=== PATIENT | female | born 1970 | race Caucasian/White ===

== ENCOUNTER 2019-04-11 15:13 | Inpatient (IN) | payer OTHER ==
[2019-04-11 20:19] LABS: ADD MAN DIFF? NO
[2019-04-11] MEDS: KETOROLAC 15 MG INJ IV (20:23)
[2019-04-11 20:24] LABS: WHITE BLOOD COUNT 16.1 10^3/ul (4.8-10.8)
[2019-04-11 20:24] LABS: BASOPHIL # 0.1 10^3/ul (0.0-0.1); BASOPHILS % 0.5 % (0.0-2.0); EOSINOPHILS # 0.1 10^3/ul (0.0-0.5); EOSINOPHILS % 0.9 % (0.0-7.0); HEMATOCRIT 44.4 % (37.0-47.0); HEMOGLOBIN 14.2 g/dl (12.0-16.0); LYMPHOCYTES # 2.4 10^3/ul (0.8-2.9); LYMPHOCYTES % 14.9 % (15.0-51.0); MEAN CORPUSCULAR HEMOGLOBIN 28.2 pg (29.0-33.0); MEAN CORPUSCULAR VOLUME 88.3 fl (82.0-101.0); MEAN PLATELET VOLUME 10.8 fl (7.4-10.4); MONOCYTE # 0.9 10^3/ul (0.3-0.9); MONOCYTES % 5.8 % (0.0-11.0); NEUTROPHIL # 12.5 10^3/ul (1.6-7.5); NEUTROPHILS % 77.4 % (39.0-77.0); PLATELET COUNT 270 10^3/UL (140-415); RED BLOOD COUNT 5.03 10^6/ul (4.20-5.40); RED CELL DISTRIBUTION WIDTH 13.7 % (11.5-14.5)
[2019-04-11 20:32] LABS: ANION GAP 13 (5-13); BLOOD UREA NITROGEN 10 mg/dl (7-20); CALCIUM 9.3 mg/dl (8.4-10.2); CARBON DIOXIDE 32 mmol/L (21-31); CHLORIDE 100 mmol/L (97-110); CREATININE 0.76 mg/dl (0.44-1.00); Estimated GFR > 60 mL/min (>60); GLUCOSE 152 mg/dl (70-220); POTASSIUM 3.7 mmol/L (3.5-5.1); SODIUM 145 mmol/L (135-144)
[2019-04-11 20:48] LABS: C-REACTIVE PROTEIN 20.1 mg/dl (0.0-0.9)
[2019-04-11] MEDS: CEFTRIAXONE 1 GM/50 ML (PMX) 50 ML IVPB (21:27)
[2019-04-11] MEDS ORDERED: HYDROCODONE/APAP (5/325) TAB PO (22:00)
[2019-04-11] MEDS ORDERED: DOCUSATE SODIUM 100 MG CAP PO (22:00)
[2019-04-11] MEDS ORDERED: BISACODYL (EC) 5 MG TAB PO (22:00)
[2019-04-11] MEDS ORDERED: ONDANSETRON 4 MG INJ IV (22:00)
[2019-04-11] MEDS ORDERED: VANCOMYCIN IV PER PHARMACY XX (22:00)
[2019-04-11] MEDS: VANCOMYCIN HCL 2 GM in SOD CHLORIDE 0.9% 500 ML IVPB (22:40)
[2019-04-11] MEDS: IOHEXOL 300MG/ML 150 ML BTL (23:05)
[2019-04-11] MEDS: SOD CHLORIDE 0.9% 100 ML (23:05)
[2019-04-12] MEDS: ACETAMINOPHEN 325 MG TAB PO ×2 (03:02→14:48)
[2019-04-12 04:05] LABS: ADD MAN DIFF? NO
[2019-04-12 04:16] LABS: BASOPHIL # 0.1 10^3/ul (0.0-0.1); BASOPHILS % 0.4 % (0.0-2.0); EOSINOPHILS % 0.2 % (0.0-7.0); HEMATOCRIT 36.8 % (37.0-47.0); LYMPHOCYTES # 1.6 10^3/ul (0.8-2.9); MEAN CORPUSCULAR HGB CONC 32.6 g/dl (32.0-37.0); MEAN CORPUSCULAR VOLUME 85.8 fl (82.0-101.0); MEAN PLATELET VOLUME 10.4 fl (7.4-10.4); MONOCYTE # 0.8 10^3/ul (0.3-0.9); MONOCYTES % 6.2 % (0.0-11.0); PLATELET COUNT 236 10^3/UL (140-415); RED BLOOD COUNT 4.29 10^6/ul (4.20-5.40); RED CELL DISTRIBUTION WIDTH 13.6 % (11.5-14.5)
[2019-04-12 04:16] LABS: WHITE BLOOD COUNT 12.5 10^3/ul (4.8-10.8)
[2019-04-12 04:27] LABS: HEMOGLOBIN A1C 6.1 % (0-5.9)
[2019-04-12 04:37] LABS: LACTIC ACID 1.1 mmol/L (0.5-2.0)
[2019-04-12 04:39] LABS: ALANINE AMINOTRANSFERASE 45 IU/L (13-69); ALBUMIN 3.7 g/dl (3.3-4.9); ALKALINE PHOSPHATASE 90 IU/L (42-121); ANION GAP 9 (5-13); ASPARTATE AMINO TRANSFERASE 40 IU/L (15-46); BILIRUBIN,INDIRECT 0.5 mg/dl (0-1.1); BILIRUBIN,TOTAL 0.5 mg/dl (0.2-1.3); BLOOD UREA NITROGEN 11 mg/dl (7-20); CALCIUM 8.4 mg/dl (8.4-10.2); CARBON DIOXIDE 27 mmol/L (21-31); CHLORIDE 102 mmol/L (97-110); CHOL/HDL RATIO 4.9 RATIO; CHOLESTEROL 123 mg/dl (100-200); CREATININE 0.69 mg/dl (0.44-1.00); Estimated GFR > 60 mL/min (>60); GLUCOSE 140 mg/dl (70-220); HDL CHOLESTEROL 25 mg/dl (37-92); LDL CHOLESTEROL,CALCULATED 79 mg/dl; MAGNESIUM 2.1 mg/dl (1.7-2.5); POTASSIUM 3.2 mmol/L (3.5-5.1); SODIUM 138 mmol/L (135-144); TOTAL PROTEIN 7.4 g/dl (6.1-8.1); TRIGLYCERIDES 96 mg/dl (0-149)
[2019-04-12 05:21] LABS: C-REACTIVE PROTEIN 16.4 mg/dl (0.0-0.9)
[2019-04-12 06:17] LABS: INR 1.02; PROTIME 13.5 Sec (11.9-14.9); PT RATIO 1.1
[2019-04-12 06:18] LABS: PARTIAL THROMBOPLASTIN TIME 31.6 Sec (23.0-35.0)
[2019-04-12 06:22] LABS: ERYTHROCYTE SEDIMENTATION RATE 60 mm/Hr (0-30)
[2019-04-12] MEDS: VANCOMYCIN HCL 1.5 GM in SOD CHLORIDE 0.9% 250 ML IVPB ×2 (09:32→21:00)
[2019-04-12] MEDS: ENOXAPARIN 40 MG/0.4 ML SYG SC (09:33)
[2019-04-12] MEDS: POTASSIUM CHLORIDE (SR) 20 MEQ TAB PO (12:11)
[2019-04-13 09:18] LABS: ADD MAN DIFF? NO
[2019-04-13 09:20] LABS: BASOPHIL # 0.1 10^3/ul (0.0-0.1); BASOPHILS % 0.6 % (0.0-2.0); EOSINOPHILS # 0.1 10^3/ul (0.0-0.5); EOSINOPHILS % 0.6 % (0.0-7.0); HEMATOCRIT 36.8 % (37.0-47.0); HEMOGLOBIN 11.7 g/dl (12.0-16.0); LYMPHOCYTES # 2.2 10^3/ul (0.8-2.9); MEAN CORPUSCULAR HEMOGLOBIN 27.6 pg (29.0-33.0); MEAN CORPUSCULAR HGB CONC 31.8 g/dl (32.0-37.0); MEAN CORPUSCULAR VOLUME 86.8 fl (82.0-101.0); MEAN PLATELET VOLUME 10.6 fl (7.4-10.4); MONOCYTE # 1.2 10^3/ul (0.3-0.9); MONOCYTES % 9.1 % (0.0-11.0); NEUTROPHIL # 9.4 10^3/ul (1.6-7.5); NEUTROPHILS % 72.1 % (39.0-77.0); PLATELET COUNT 256 10^3/UL (140-415); RED BLOOD COUNT 4.24 10^6/ul (4.20-5.40); RED CELL DISTRIBUTION WIDTH 13.9 % (11.5-14.5)
[2019-04-13 09:45] LABS: ALANINE AMINOTRANSFERASE 49 IU/L (13-69); ALBUMIN 3.8 g/dl (3.3-4.9); ALKALINE PHOSPHATASE 107 IU/L (42-121); ANION GAP 8 (5-13); ASPARTATE AMINO TRANSFERASE 40 IU/L (15-46); BILIRUBIN,INDIRECT 0.6 mg/dl (0-1.1); BILIRUBIN,TOTAL 0.6 mg/dl (0.2-1.3); BLOOD UREA NITROGEN 7 mg/dl (7-20); CALCIUM 8.8 mg/dl (8.4-10.2); CARBON DIOXIDE 30 mmol/L (21-31); CHLORIDE 102 mmol/L (97-110); CREATININE 0.71 mg/dl (0.44-1.00); Estimated GFR > 60 mL/min (>60); GLUCOSE 124 mg/dl (70-220); POTASSIUM 3.4 mmol/L (3.5-5.1); SODIUM 140 mmol/L (135-144); TOTAL PROTEIN 7.6 g/dl (6.1-8.1)
[2019-04-13] MEDS: ENOXAPARIN 40 MG/0.4 ML SYG SC (09:55)
[2019-04-13] MEDS: VANCOMYCIN HCL 1.5 GM in SOD CHLORIDE 0.9% 250 ML IVPB (10:09)
[2019-04-13] MEDS: NACL 0.9% 3 ML SYG IV (10:14)
[2019-04-13] MEDS: POTASSIUM CHLORIDE (SR) 20 MEQ TAB PO (12:27)
[2019-04-13] MEDS: VANCOMYCIN HCL 1.25 GM in SOD CHLORIDE 0.9% 250 ML IVPB (17:10)
[2019-04-13] MEDS: DOXYCYCLINE 100 MG TAB PO (20:22)
[2019-04-14] MEDS: VANCOMYCIN HCL 1.25 GM in SOD CHLORIDE 0.9% 250 ML IVPB ×3 (01:06→18:20)
[2019-04-14 05:50] LABS: ADD MAN DIFF? NO
[2019-04-14 06:03] LABS: BASOPHIL # 0.1 10^3/ul (0.0-0.1); BASOPHILS % 0.6 % (0.0-2.0); EOSINOPHILS # 0.2 10^3/ul (0.0-0.5); EOSINOPHILS % 1.6 % (0.0-7.0); HEMATOCRIT 35.6 % (37.0-47.0); HEMOGLOBIN 11.3 g/dl (12.0-16.0); LYMPHOCYTES # 2.9 10^3/ul (0.8-2.9); LYMPHOCYTES % 19.8 % (15.0-51.0); MEAN CORPUSCULAR HGB CONC 31.7 g/dl (32.0-37.0); MEAN CORPUSCULAR VOLUME 88.1 fl (82.0-101.0); MEAN PLATELET VOLUME 10.5 fl (7.4-10.4); MONOCYTE # 1.1 10^3/ul (0.3-0.9); MONOCYTES % 7.3 % (0.0-11.0); NEUTROPHIL # 10.2 10^3/ul (1.6-7.5); NEUTROPHILS % 70.1 % (39.0-77.0); PLATELET COUNT 263 10^3/UL (140-415); RED BLOOD COUNT 4.04 10^6/ul (4.20-5.40); RED CELL DISTRIBUTION WIDTH 14.1 % (11.5-14.5)
[2019-04-14 06:03] LABS: WHITE BLOOD COUNT 14.6 10^3/ul (4.8-10.8)
[2019-04-14 06:18] LABS: ANION GAP 7 (5-13); BLOOD UREA NITROGEN 10 mg/dl (7-20); CALCIUM 8.7 mg/dl (8.4-10.2); CARBON DIOXIDE 30 mmol/L (21-31); CHLORIDE 104 mmol/L (97-110); CREATININE 0.84 mg/dl (0.44-1.00); Estimated GFR > 60 mL/min (>60); GLUCOSE 130 mg/dl (70-220); POTASSIUM 4.7 mmol/L (3.5-5.1); SODIUM 141 mmol/L (135-144)
[2019-04-14] MEDS: DOXYCYCLINE 100 MG TAB PO ×2 (09:05→20:18)
[2019-04-14] MEDS: ENOXAPARIN 40 MG/0.4 ML SYG SC (09:06)
[2019-04-14] MEDS: LIDOCAINE 2%/EPI (MDV) 20ML INJ INJ (10:58)
[2019-04-14] MEDS: CEFTRIAXONE 1 GM/50 ML (PMX) 50 ML IVPB (16:11)
[2019-04-14 18:15] LABS: VANCOMYCIN,TROUGH 12.8 ug/ml (10.0-20.0)
[2019-04-15] MEDS: VANCOMYCIN HCL 1.25 GM in SOD CHLORIDE 0.9% 250 ML IVPB ×3 (02:08→17:59)
[2019-04-15 06:38] LABS: ADD MAN DIFF? NO
[2019-04-15 06:42] LABS: WHITE BLOOD COUNT 12.7 10^3/ul (4.8-10.8)
[2019-04-15 06:42] LABS: BASOPHIL # 0.1 10^3/ul (0.0-0.1); BASOPHILS % 0.6 % (0.0-2.0); EOSINOPHILS # 0.3 10^3/ul (0.0-0.5); EOSINOPHILS % 2.4 % (0.0-7.0); HEMATOCRIT 35.9 % (37.0-47.0); HEMOGLOBIN 11.2 g/dl (12.0-16.0); LYMPHOCYTES # 2.6 10^3/ul (0.8-2.9); LYMPHOCYTES % 20.5 % (15.0-51.0); MEAN CORPUSCULAR HEMOGLOBIN 27.5 pg (29.0-33.0); MEAN CORPUSCULAR HGB CONC 31.2 g/dl (32.0-37.0); MEAN CORPUSCULAR VOLUME 88.2 fl (82.0-101.0); MEAN PLATELET VOLUME 10.5 fl (7.4-10.4); MONOCYTE # 0.8 10^3/ul (0.3-0.9); MONOCYTES % 6.4 % (0.0-11.0); NEUTROPHIL # 8.8 10^3/ul (1.6-7.5); NEUTROPHILS % 68.9 % (39.0-77.0); PLATELET COUNT 292 10^3/UL (140-415); RED BLOOD COUNT 4.07 10^6/ul (4.20-5.40); RED CELL DISTRIBUTION WIDTH 14.1 % (11.5-14.5)
[2019-04-15] MEDS: DOXYCYCLINE 100 MG TAB PO (08:19)
[2019-04-15] MEDS: ENOXAPARIN 40 MG/0.4 ML SYG SC (08:20)
[2019-04-15] MEDS: CEFTRIAXONE 1 GM/50 ML (PMX) 50 ML IVPB (16:43)
[2019-04-16] MEDS: VANCOMYCIN HCL 1.25 GM in SOD CHLORIDE 0.9% 250 ML IVPB ×4 (02:01→10:00)
[2019-04-16 08:49] LABS: CREATININE 0.82 mg/dl (0.44-1.00)
[2019-04-16 08:49] LABS: BLOOD UREA NITROGEN 9 mg/dl (7-20)
[2019-04-16] MEDS: ENOXAPARIN 40 MG/0.4 ML SYG SC (09:19)
== END 2019-04-16 14:20 | disposition home or self-care (01) | DRG 603 ==
LOC: E/R 15:13 → 5EC 21:19
PROC: 0HBKXZX Excision of Right Lower Leg Skin, External Approach, Diagnostic (ICD-10-PCS; principal; 2019-04-14)
DX: L03.115 Cellulitis of right lower limb (principal); Z68.42 Body mass index [BMI] 45.0-49.9, adult; E66.01 Morbid (severe) obesity due to excess calories; R73.03 Prediabetes; R21 Rash and other nonspecific skin eruption
CPT/HCPCS: 36415; 73700; 80048; 80053; 80061; 80202; 82306; 82565; 83036; 83605; 83735; 84443; 84520; 85025; 85610; 85651; 85730; 86140; 87040-91; 88305; 93971; 96374; 99285-25